=== PATIENT | female | born 1975 | race Two or more races ===

== ENCOUNTER → 2024-10-24 | Outpatient (CLI) | payer MEDICAID, SELFPAY ==
--- NOTE | 2024-10-24 13:00 | XR_ITS ---
Examination: Breast ultrasound, unilateral, right complete Date and time of exam: October 24, 2024 1319 hours INDICATIONS: Mammogram June 06, 2024 6 mm focal asymmetry upper outer right breast Technique: Real-time davila scale ultrasonographic imaging performed right breast including all 4 quadrants as well as nipple retroareolar and axillary region. Findings: 11:00 oval mass versus glandular tissue, 6 x 3 x 7 mm IMPRESSION: BI-RADS Category 3: Probably benign findings 11:00 oval mass versus glandular tissue 6 x 3 x 7 mm, recommend 6 month follow-up right breast sonography to document stability of this appearance
--- NOTE | 2024-10-24 13:30 | XR_ITS ---
Examination: Diagnostic digital mammography, unilateral, right Computer aided detection 3-D breast Tomosynthesis, unilateral Date and time of exam: October 24, 2024 1305 hours INDICATIONS: Mammogram June 06, 2024 6 mm focal asymmetry upper right breast MLO view, 6.3 cm from the nipple Technique: Nonmagnified MLO, CC views of the right breast have been obtained, reconstructed from 3-D Tomosynthesis images. R2 computer aided detection program utilized for evaluation of suspicious masses and/or abnormal calcifications. 3-D Tomosynthesis images obtained. Findings: Scattered areas of fibroglandular density. 6 mm circumscribed nodule slightly outer right breast CC view Impression: BI-RADS category 3: Probably benign findings Recommend 1 additional 6 month right mammogram follow-up
== END | disposition home or self-care (01) ==
LOC: CDIM 12:50
PROVIDERS: PCP Family Medicine; Referring Provider Nurse Practitioner Women's Health; Visit Provider Nurse Practitioner Women's Health
DX: R92.331 Mammographic heterogeneous density, right breast (principal); R92.8 Other abnormal and inconclusive findings on diagnostic imaging of breast
CPT/HCPCS: 76641; 77061; 77065; G0279